=== PATIENT | male | born 1965 | race Caucasian/White ===

== ENCOUNTER 2022-03-14 07:17 | Day surgery (SDC) | payer SELFPAY ==
[~2022-03-14 07:17] MED LIST: ESOMEPRAZOLE MA20 MG PO; XYZAL ALLERGY 245 MG PO
[2022-03-14 11:04] VITALS: BP 138/88
== END 2022-03-14 11:55 | disposition home or self-care (01) | DRG 712 ==
LOC: ORM 07:17
PROVIDERS: ATTEND Urology
PROC: 0VB60ZZ Excision of Right Tunica Vaginalis, Open Approach (ICD-10-PCS; principal; 2022-03-14)
DX: N43.3 Hydrocele, unspecified (principal); K21.9 Gastro-esophageal reflux disease without esophagitis; J45.909 Unspecified asthma, uncomplicated
CPT/HCPCS: J0131